=== PATIENT | male | born 1980 | race Caucasian/White ===

== ENCOUNTER 2019-12-26 16:55 | Emergency (ER) | payer BC ==
[~2019-12-26] VITALS: Ht 165.1 cm; Wt 66.7 kg
[2019-12-26 16:55] VITALS: BP_SYST 128
--- NOTE | 2019-12-26 16:55 | NUR ---
Patient to ER bed HALLWAY BED 1 to gown for evaluation. Side rails up.
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
--- NOTE | 2019-12-26 16:57 | NUR ---
ER Dr. Sher at bedside examining patient.
[2019-12-26] MEDS ORDERED: BACITRACIN 1 GM OINT TP ONE (17:00)
[2019-12-26 17:19] VITALS: BP_SYST 128
--- NOTE | 2019-12-26 17:19 | NUR ---
Patient given written and verbal discharge instructions and verbalizes understanding. ER MD discussed with patient the results and treatment provided. Patient in stable condition. ID arm band removed. Rx of Tylenol, Augmentin, Neosporin given. Patient educated on pain management and to follow up with PMD. Pain Scale 0/10. Opportunity for questions provided and answered. Medication side effect fact sheet provided.
== END 2019-12-26 17:19 ==
LOC: SED 16:55
DX: S61.551A Open bite of right wrist, initial encounter (principal); W50.3XXA Accidental bite by another person, initial encounter; Y93.89 Activity, other specified; Y92.89 Other specified places as the place of occurrence of the external cause; Y99.8 Other external cause status
CPT/HCPCS: 99283